=== PATIENT | female | born 1955 | race Caucasian/White ===

== ENCOUNTER 2017-09-06 11:07 | Emergency (ER) | payer BC, OTHER ==
[2017-09-06 11:27] VITALS: BMI 39.6
--- NOTE | 2017-09-06 11:46 | PDOC ---
History of Present Illness - General History Source: Patient Exam Limitations: No Limitations - History of Present Illness Initial Comments: 09/06/17 12:14 61 year old female, with significant past medical history of asthma, emphysema, chronic bronchitis, who presents to the emergency room with 1 day of pleuritic left sided pain that is exacerbated when taking a deep breath. The patient used her inhaler this morning and denies SOB and productive cough at this time. She states that she was in the [place] [facility] office this morning when she experienced an episode of dizziness, nausea, and the sweats. She reports that this happened once before and she was told that she had some kind of heart arrhythmia. Denies fever, chills, vomiting. Denies abdominal pain. Denies increased leg swelling. Denies recent travel. Allergies: NKDA PCP: Dr. Navarro Triage Assistant: Dr. Hall <Kay Wynne - Last Filed: 09/06/17 12:17> <Ingrid Ramon - Last Filed: 09/06/17 19:13> - General Chief Complaint: Chest Pain Stated Complaint: CHEST PAIN Time Seen by Provider: 09/06/17 11:45 Past History <Kay Wynne - Last Filed: 09/06/17 12:17> - Suicide/Smoking/Psychosocial Hx Smoking History: Never smoked Have you smoked in the past 12 months: No Information on smoking cessation initiated: No Hx Alcohol Use: No Drug/Substance Use Hx: No Substance Use Type: None <Ingrid Ramon - Last Filed: 09/06/17 19:13> - Past Medical History Allergies/Adverse Reactions: Allergies Allergy/AdvReac Type Severity Reaction Status Date / Time No Known Allergies Allergy Verified 09/06/17 11:27 Home Medications: Ambulatory Orders Methocarbamol [Robaxin -] 500 mg PO TID PRN #21 tablet 09/06/17 Review of Systems - Review of Systems Comments:: 09/06/17 12:15 GENERAL/CONSTITUTIONAL: +dizzy, +sweats. No fever or chills. No weakness. HEAD, EYES, EARS, NOSE AND THROAT: No change in vision. No ear pain or discharge. No sore throat. GASTROINTESTINAL: +nausea. No vomiting, diarrhea or constipation. GENITOURINARY: No dysuria, frequency, or change in urination. CARDIOVASCULAR: No chest pain or shortness of breath. RESPIRATORY: No cough, wheezing, or hemoptysis. MUSCULOSKELETAL: +left sided pain exacerbated when taking a deep breath. No joint or muscle swelling or pain. No neck. SKIN: No rash NEUROLOGIC: No headache, vertigo, loss of consciousness, or change in strength/ sensation. ENDOCRINE: No increased thirst. No abnormal weight change. HEMATOLOGIC/LYMPHATIC: No anemia, easy bleeding, or history of blood clots. ALLERGIC/IMMUNOLOGIC: No hives or skin allergy. <Kay Wynne - Last Filed: 09/06/17 12:17> *Physical Exam - Vital Signs Last Vital Signs Temp Pulse Resp BP Pulse Ox 98.7 F 83 18 115/78 100 09/06/17 11:10 09/06/17 11:10 09/06/17 11:10 09/06/17 11:10 09/06/17 11:10 <Kay Wynne - Last Filed: 09/06/17 12:17> - Vital Signs Last Vital Signs Temp Pulse Resp BP Pulse Ox 98.7 F 83 18 115/78 100 09/06/17 11:10 09/06/17 11:10 09/06/17 11:10 09/06/17 11:10 09/06/17 11:10 - Physical Exam Comments: GENERAL: Awake, alert, and fully oriented, in no acute distress. Obese HEAD: No signs of trauma EYES: PERRLA, EOMI, sclera anicteric, conjunctiva clear ENT: Auricles normal inspection, hearing grossly normal, nares patent, oropharynx clear without exudates. Moist mucosa NECK: Normal ROM, supple, no lymphadenopathy, JVD, or masses LUNGS: Breath sounds equal, clear to auscultation bilaterally. No wheezes, and no crackles HEART: Regular rate and rhythm, normal S1 and S2, no murmurs, rubs or gallops ABDOMEN: Soft, nontender, normoactive bowel sounds. No guarding, no rebound. No masses EXTREMITIES: Normal range of motion, no edema. No clubbing or cyanosis. No cords , erythema, or tenderness NEUROLOGICAL: Cranial nerves II through XII grossly intact. Normal speech, normal gait SKIN: Warm, Dry, normal turgor, no rashes or lesions noted. <Ingrid Ramon - Last Filed: 09/06/17 19:13> Heart Score/ECG Review - ECG Impressions Comment:: EKG read 11:16- NSR 79 bpm, occasional PAC. No acute ST/T changes. <Ingrid Ramon - Last Filed: 09/06/17 19:13> ED Treatment Course - LABORATORY CBC & Chemistry Diagram: 09/06/17 11:50 09/06/17 11:50 <Kay Wynne - Last Filed: 09/06/17 12:17> - LABORATORY CBC & Chemistry Diagram: 09/06/17 11:50 09/06/17 14:07 <Ingrid Ramon - Last Filed: 09/06/17 19:13> Medical Decision Making - Medical Decision Making 09/06/17 19:12 Results d/w patient. Her pain is atypical- reproducible with movement of torso. CE negative. CTA negative for PE. Stable for DC home. <Ingrid Ramon - Last Filed: 09/06/17 19:13> *DC/Admit/Observation/Transfer - Attestations Scribe Attestion: 09/06/17 12:16 Documentation prepared by BRADY Greene, acting as medical laboratory scientist for Ingrid Ramon MD. <Kay Wynne - Last Filed: 09/06/17 12:17> - Discharge Dispostion Admit: No <Ingrid Ramon - Last Filed: 09/06/17 19:13> Diagnosis at time of Disposition: Chest pain Qualifiers: Chest pain type: chest pain on breathing Qualified Code(s): R07.1 - Chest pain on breathing - Discharge Dispostion Disposition: HOME Condition at time of disposition: Stable - Prescriptions Prescriptions: Methocarbamol [Robaxin -] 500 mg PO TID PRN #21 tablet PRN Reason: Muscle Spasms - Referrals Referrals: Kasie Navarro MD [Primary Care Provider] - - Patient Instructions Printed Discharge Instructions: DI for Atypical Chest Pain
[2017-09-06 12:15] LABS: BASOPHIL 1.5 % (0-2.0); EOSINOPHIL 1.9 % (0-4.5); MCH 28.6 pg (25.7-33.7); MCHC 33.1 g/dl (32.0-36.0); MEAN CELL VOLUME 86.6 fl (80-96); MEAN PLT VOLUME 9.3 fl (7.5-11.1); NEUTROPHILS 71.2 % (42.8-82.8); PLATELET COUNT 221 K/MM3 (134-434); RDW 13.4 % (11.6-15.6); WHITE BLOOD COUNT 9.9 K/mm3 (4.0-10.0)
--- NOTE | 2017-09-06 12:34 | EKG ---
Test Reason : Blood Pressure : / mmHG Vent. Rate : 079 BPM Atrial Rate : 079 BPM P-R Int : 164 ms QRS Dur : 094 ms QT Int : 402 ms P-R-T Axes : 051 -20 066 degrees QTc Int : 460 ms SINUS RHYTHM WITH PREMATURE ATRIAL COMPLEXES WHEN COMPARED WITH ECG OF 20-APR-2004 12:25, PREMATURE ATRIAL COMPLEXES ARE NOW PRESENT Confirmed by KAISER GALLARDO MD ([id number]) on 09/06/2017 12:33:46 PM Referred By: Confirmed By:KAISER GALLARDO MD
[2017-09-06 14:49] LABS: ALBUMIN 3.6 g/dl (3.4-5.0); ANION GAP 10 (8-16); BILIRUBIN,TOTAL 0.4 mg/dL (0.2-1.0); CALCIUM 9.3 mg/dL (8.5-10.1); CO2 28 mmol/L (21-32); CREATININE 0.7 mg/dL (0.55-1.02); GLUCOSE,RANDOM 110 mg/dL (74-106); SGOT/AST 22 U/L (15-37); SGPT/ALT 33 U/L (12-78)
[2017-09-06 14:53] LABS: ALK PHOS 164 U/L (45-117); CPK 149 IU/L (26-192); TOT PROT 7.7 g/dl (6.4-8.2); TROPONIN I < 0.02 ng/ml (0.00-0.05)
[2017-09-06 17:52] VITALS: BP 120/72; PULSE 77; TEMP 98.5
[2017-09-06] MEDS ORDERED: IBUPROFEN 600 MG TABLET (FP) PO ONE ×2 (19:04→19:10)
[2017-09-06] MEDS ORDERED: METHOCARBAMOL 500 MG TABLET PO ONE (19:04)
[2017-09-06] MEDS ORDERED: METHOCARBAMOL 500 MG TABLET ONE (19:10)
== END 2017-09-06 19:05 | disposition home or self-care (01) ==
LOC: JER 11:07
DX: R07.1 Chest pain on breathing (principal)
CPT/HCPCS: 36415; 71010-TC; 71275-TC; 80053; 82550; 84484; 85025; 93005; 93010; 99283-25